=== PATIENT | female | born 1980 | race African-American/Black ===

== ENCOUNTER 2019-01-22 04:11 | Inpatient (IN) | payer BC ==
[2019-01-22] VITALS (16 sets, daily range): BP systolic 100–116; BP diastolic 54–78
[~2019-01-22] VITALS: Ht 152.4 cm; Wt 61.7 kg
[2019-01-22] MEDS ORDERED: SODIUM CHLORIDE 0.9% 1,000 ML IV ONE (04:52)
[2019-01-22 05:16] LABS: BG CARBOXYHEMOGLOBIN 0.3 % (0.5-1.5); BG DEOXYHEMOGLOBIN 2.6 % (0.0-5.0); BG FRACTION INSPIRED OXYGEN 21; BG HCO3 ACT 4.6 mmol/L (22.0-26.0); BG METHEMOGLOBIN 0.5 % (0.0-1.5); BG OXYGEN SATURATION 97.4 % (92.0-98.5); BG OXYHEMOGLOBIN 96.6 % (94.0-97.0); BG PCO2 15.5 mmHg (35.0-45.0); BG PH 7.094 (7.350-7.450); BG PO2 119.5 mmHg (75.0-100.0); BG SAMPLE SITE RIGHT RADIAL; BG TOTAL HEMOGLOBIN 14.9 g/dL (12.0-18.0); BG VENT MODE ROOM AIR
[2019-01-22 05:29] LABS: BASOPHILS % 0.4 % (0.0-2.0); HEMOGLOBIN. 14.6 g/dL (12.0-16.0); LYMPHOCYTES % 19.3 % (20.0-50.0); MEAN CORPUSCULAR HEMOGLOBIN 28.9 pg (28.0-32.0); MEAN CORPUSCULAR VOLUME 97.1 fL (81.0-99.0); MEAN PLATELET VOLUME 9.8 fl (7.4-10.4); NEUTROPHILS % 76.3 % (40.0-76.0); PLATELET 395 x1000/uL (130-400); RED BLOOD CELL COUNT 5.05 mill/uL (4.2-5.4); RED CELL DISTRIBUTION WIDTH 15.3 % (11.6-14.6)
[2019-01-22] MEDS ORDERED: ONDANSETRON HCL 4MG/2ML INJ IV ONE ×2 (05:30→06:30)
[2019-01-22 05:46] LABS: HCG SCREEN NEGATIVE
[2019-01-22 06:08] LABS: CHLORIDE 98 mEq/L (98-107)
[2019-01-22] MEDS ORDERED: SODIUM CHLORIDE 0.9% 1,000 ML IV STA (06:16)
[2019-01-22] MEDS ORDERED: INSULIN REGULAR (DRIP) 100 UNITS in SODIUM CHLORIDE 0.9% 99 ML IV ONE ×2 (06:16→06:30)
[2019-01-22 06:48] LABS: CLARITY URINE CLEAR (CLEAR); COLOR URINE YELLOW (YELLOW); KETONES URINE 4+ (NEGATIVE); LEUKOCYTE ESTERASE URINE NEGATIVE (NEGATIVE); NITRITE URINE NEGATIVE (NEGATIVE); OCCULT BLOOD URINE NEGATIVE (NEGATIVE); PROTEIN URINE TRACE (NEGATIVE); SPECIFIC GRAVITY URINE 1.022 (1.005-1.030); UROBILINOGEN URINE 0.2 E.U./dL (0.2-1.0)
[2019-01-22 08:07] LABS: BETA HYDROXYBUTYRATE 15.5 mMol/L (0.0-0.3)
[2019-01-22 08:14] LABS: CHLORIDE 105 mEq/L (98-107)
[2019-01-22 08:19] LABS: PHOSPHORUS 7.7 mg/dL (2.5-4.9)
[2019-01-22] MEDS ORDERED: ACETAMINOPHEN 325MG TABLET PO PRN (09:45)
[2019-01-22] MEDS ORDERED: ONDANSETRON HCL 4MG/2ML INJ IV PRN (09:45)
[2019-01-22] MEDS ORDERED: INSULIN REGULAR (DRIP) 100 UNITS in SODIUM CHLORIDE 0.9% 100 ML IV SCH ×2 (09:45→09:46)
[2019-01-22] MEDS ORDERED: DEXTROSE 50% WATER 50ML SYRINGE IV PRN ×2 (10:00)
[2019-01-22] MEDS: BLOOD SUGAR DIAGNOSTIC STRIP TEST SCH ×15 (10:38→23:04)
[2019-01-22] MEDS: SODIUM CHLORIDE 0.9% 1,000 ML IV SCH ×2 (10:38→18:26)
[2019-01-22] MEDS: PANTOPRAZOLE SODIUM 40 MG/VIAL IV SCH (11:16)
[2019-01-22 15:56] LABS: CHLORIDE 109 mEq/L (98-107)
[2019-01-22 16:01] LABS: PHOSPHORUS 2.6 mg/dL (2.5-4.9)
[2019-01-22] MEDS ORDERED: INSU100I28 SQ (17:04)
[2019-01-22] MEDS ORDERED: INSLIS SUBCUT (17:05)
[2019-01-22 21:41] LABS: CHLORIDE 110 mEq/L (98-107)
[2019-01-23] VITALS (11 sets, daily range): BP systolic 101–141; BP diastolic 56–71
[2019-01-23] MEDS: BLOOD SUGAR DIAGNOSTIC STRIP TEST SCH ×10 (00:04→09:22)
[2019-01-23] MEDS: SODIUM CHLORIDE 0.9% 1,000 ML IV SCH (02:32)
[2019-01-23 05:41] LABS: BASOPHILS % 0.2 % (0.0-2.0); HEMATOCRIT. 33.4 % (36.0-48.0); HEMOGLOBIN. 10.8 g/dL (12.0-16.0); LYMPHOCYTES % 19.7 % (20.0-50.0); MEAN CORPUSCULAR HEMOGLOBIN 29.1 pg (28.0-32.0); MEAN CORPUSCULAR VOLUME 89.9 fL (81.0-99.0); MEAN PLATELET VOLUME 8.2 fl (7.4-10.4); MONOCYTES % 9.1 % (2.0-8.0); PLATELET 291 x1000/uL (130-400); RED BLOOD CELL COUNT 3.71 mill/uL (4.2-5.4); RED CELL DISTRIBUTION WIDTH 14.3 % (11.6-14.6)
[2019-01-23 06:33] LABS: CHLORIDE 113 mEq/L (98-107)
[2019-01-23 06:53] LABS: BETA HYDROXYBUTYRATE 5.3 mMol/L (0.0-0.3)
[2019-01-23] MEDS: PANTOPRAZOLE SODIUM 40 MG/VIAL IV SCH (09:21)
== END 2019-01-23 09:55 | disposition home or self-care (01) | DRG 638 ==
LOC: ER 04:11 → MICUNO 05:48 → EDBEDREQ 05:56 → EDBEDREQTM 05:56 → ENRESERV 07:32
PROVIDERS: ADMIT Hospitalist; ATTEND Hospitalist
DX: E11.10 Type 2 diabetes mellitus with ketoacidosis without coma (principal); E87.1 Hypo-osmolality and hyponatremia; R65.10 Systemic inflammatory response syndrome (SIRS) of non-infectious origin without acute organ dysfunction; E87.5 Hyperkalemia; D72.829 Elevated white blood cell count, unspecified; Z91.11 Patient's noncompliance with dietary regimen; Z79.4 Long term (current) use of insulin
CPT/HCPCS: 36415; 36600; 71045; 80048; 82010; 82375; 82805; 82962; 83036; 83735; 84100; 84703; 93005; 96365; 96375; 99291; C9113; J1815; J2405; J7030; J7050